=== PATIENT | female | born 1985 | race Caucasian/White ===

== ENCOUNTER 2017-01-23 15:34 | Emergency (ER) | payer SELFPAY ==
[2017-01-23 15:38] VITALS: BP 123/66; BMI 38.4
--- NOTE | 2017-01-23 19:49 | DR.URIAD ---
HPI - PCP Primary Care Physician: JULES - Complaint Chief Complaint:: PT. C/O SORE THROAT, HEADACHE, CHILLS, FEVER, N/V, AND SHORTNESS OF BREATH X 3 DAYS. - Source History Provided: Patient - Mode of Arrival Mode of Arrival: Ambulatory - Timing Onset of Chief Complaint: 01/20/17 PMH - PMH Past Medical History: No Past Medical History: Migraines, Kidney Stones Past Surgical History: Yes Surgical History: Appendectomy, , Cholecystectomy, [employer] Surgery, Other Past Surgical History Comment: TUBAL LIGATION, NOVASURE - Family History History of Family Medical Conditions: Yes Family Medical History: Diabetes Mellitus - Social History Does patient currently use any type of tobacco product: Yes Have you used tobacco products in the last 12 months: Yes Type of Tobacco Use: Cigarettes Does any household member use tobacco: No Alcohol Use: None Do you use any recreational Drugs:: No Lives With: Family Lives Where: Home - infectious screening In the last 2 months have you had wt loss of >10#?: NO Have you had fever, night sweats or hemotysis?: No Have you traveled outside the country in the last 6 months?: No Isolation: Standard PE - Vital Signs Vitals: Temperature 98 F Pulse Rate 90 Respiratory Rate 20 Blood Pressure 123/66 O2 Sat by Pulse Oximetry 98 ROR - Labs Reviewed Laboratory: Specimen Type Clean catch urine 01/23/17 20:06 Urine Color Yellow (YELLOW) 01/23/17 20:06 Urine Appearance Slightly hazy (CLEAR) 01/23/17 20:06 Urine pH 5.0 (5.0 - 8.0) 01/23/17 20:06 Ur Specific [place] 1.025 (1.000-1.030) 01/23/17 20:06 Urine Protein 1+ (NEGATIVE) 01/23/17 20:06 Urine Glucose (UA) Negative (NEGATIVE) 01/23/17 20:06 Urine Ketones Negative (NEGATIVE) 01/23/17 20:06 Urine Occult Blood 1+ (NEGATIVE) 01/23/17 20:06 Urine Nitrite Negative (NEGATIVE) 01/23/17 20:06 Urine Bilirubin Negative (NEGATIVE) 01/23/17 20:06 Urine Urobilinogen Normal (NORMAL) 01/23/17 20:06 Ur Leukocyte Esterase 1+ (NEGATIVE) 01/23/17 20:06 Urine RBC Rare /HPF (NEGATIVE) 01/23/17 20:06 Urine WBC 1 - 3 /HPF (NEGATIVE) 01/23/17 20:06 Ur Squamous Epith Cells Numerous /HPF (NEGATIVE) 01/23/17 20:06 Urine Bacteria Trace /HPF (NEGATIVE) 01/23/17 20:06 Ur Culture Indicated? No/not indicated 01/23/17 20:06 Influenza Type A (PCR) Negative (NEGATIVE) 01/23/17 19:37 Influenza Type B (PCR) Negative (NEGATIVE) 01/23/17 19:37 Streptococcus Screen Negative (NEGATIVE) 01/23/17 19:37 - Discharge Plan Condition: Stable Prescriptions: Azithromycin [ZITHROMAX Tab 250 mg *] 1 dose PO DAILY #6 tab Cetirizine HCl [Zyrtec Tab 10 mg] 10 mg PO DAILY #30 tab Promethazine W/Codeine [PHENERGAN W/CODEINE 6.25mg/10mg (5mL) *] 10 ml PO Q6H PRN #120 ml PRN Reason: Cough - Follow ups/Referrals Follow ups/Referrals: USMAN VICENTE [Primary Care Provider] - 3 days - Instructions Instructions: Acute Bronchitis, [id number], Sinusitis, Adult, [id number] Additional Instructions: RETURN TO ED IF WORSE.
[2017-01-23 20:21] LABS: BILIRUBIN,URINE NEGATIVE (NEGATIVE); BLOOD/HEMOGLOBIN,URINE 1+ (NEGATIVE); GLUCOSE, URINE NEGATIVE (NEGATIVE); KETONES,URINE NEGATIVE (NEGATIVE); LEUKOCYTE ESTERASE ,URINE 1+ (NEGATIVE); NITRITES,URINE NEGATIVE (NEGATIVE); PROTEIN,URINE 1+ (NEGATIVE); UROBILINOGEN,URINE NORMAL (NORMAL)
[2017-01-23 20:29] LABS: APPEARANCE,URINE SLIGHTLY HAZY (CLEAR); COLOR,URINE YELLOW (YELLOW)
[2017-01-23 20:31] LABS: BACTERIA,URINE TRACE /HPF (NEGATIVE); RBC,URINE RARE /HPF (NEGATIVE); SQUAMOUS EPITHELIAL CELL,UR NUMEROUS /HPF (NEGATIVE)
--- NOTE | 2017-01-23 21:09 | RAD ---
HISTORY: Sore throat, headache, chills, fever, nausea and vomiting. Shortness of breath for 3 days. Study: Chest one view Comparison: December 21, 2015. Findings: The trachea is midline. The cardiac silhouette is unremarkable. The lungs are clear without focal i nfiltrate or effusion. The bony thorax is unremarkable. IMPRESSION: 1. No acute cardiopulmonary disease. Reported By:
[2017-01-23] MEDS ORDERED: ZITHROMAX TAB 250 MG PO ONE ×2 (21:21→21:37)
[2017-01-23] MEDS ORDERED: PHENERGAN W/CODEINE 6.25MG/10MG PO ONE (21:21)
[2017-01-23] MEDS ORDERED: ZyrTEC TAB 10 MG PO ONE (21:22)
[2017-01-23] MEDS ORDERED: PHENERGAN W/CODEINE 6.25MG/10MG ONE (21:37)
[2017-01-23] MEDS ORDERED: ZyrTEC TAB 10 MG ONE (21:37)
== END 2017-01-23 21:54 | disposition home or self-care (01) ==
LOC: ER 15:54
DX: J32.9 Chronic sinusitis, unspecified (principal); J20.9 Acute bronchitis, unspecified; J02.9 Acute pharyngitis, unspecified; R51 Headache; R50.9 Fever, unspecified; R11.2 Nausea with vomiting, unspecified; R68.83 Chills (without fever)
CPT/HCPCS: 71010; 81001; 87070; 87502; 87880; 99282; Q0144

== ENCOUNTER 2017-05-04 17:41 | Emergency (ER) | payer SELFPAY ==
[2017-05-04 17:48] VITALS: BMI 38.0
--- NOTE | 2017-05-04 18:11 | DR.GENAD ---
HPI - PCP Primary Care Physician: NFD - Complaint/Symptoms Chief Complaint Doctors Comments: Patient presents with cough, congestion and body aches. She has tried OTC medication with out relief of symptoms. Chief Complaint:: PT STATES, "MY CHEST FEELS LIKE ITS CAVING IN AND I'VE BEEN HAVING SOME SHORTNESS OF BREATH AND SOME THROWING UP." PT ALSO C/O GEN BODY ACHES. Self Treatment fo Chief Complaint: THERAFLU. CLARITIN - Source History Provided: Patient - Mode of Arrival Mode of Arrival: Ambulatory - Timing Onset of Chief Complaint: 05/01/17 PMH - PMH Past Medical History: No Past Medical History: Migraines, Kidney Stones Past Surgical History: Yes Surgical History: Appendectomy, , Cholecystectomy Past Surgical History Comment: TUBAL - Family History History of Family Medical Conditions: Yes Family Medical History: Diabetes Mellitus, Hypertension - Social History Alcohol Use: None Do you use any recreational Drugs:: No Lives With: Family Lives Where: Home - infectious screening In the last 2 months have you had wt loss of >10#?: NO Have you had fever, night sweats or hemotysis?: No Have you traveled outside the country in the last 6 months?: No Isolation: Standard ROS - Review of Systems Constitutional: Weakness Eyes: No Symptoms Reported ENTM: No Symptoms Reported Respiratoy: No Symptoms Reported Cardiovascular: No Symptoms Reported Gastrointestinal/Abdominal: No Symptoms Reported Genitourinary: No Symptoms Reported Neurological: No Symptoms Reported Musculoskeletal: No Symptoms Reported Integumentary: No Symptoms Reported Hematologic/Lymphatic: No Symptoms Reported Endocrine: No Symptoms Reported Psychiatric: No Symptoms Reported All Other Systems: Reviewed and Negative PE - Vital Signs Vitals: Temperature 98.4 F Pulse Rate 88 Respiratory Rate 20 Blood Pressure 106/57 O2 Sat by Pulse Oximetry 98 - General Limitations: No Limitations General Appearance: Alert, In No Apparent Distress - Head Head Exam: Normal Inspection, Atraumatic - Eyes Eye exam: Normal Appearance, PERRL, EOMI - ENT ENT Exam: Normal Exam, Normal Oropharynx External Ear Exam: Normal External Inspection TM/Canal Exam: Bilateral Normal Nose Exam: Normal Nose Exam Mouth Exam: Normal Inspection Throat Exam: Normal Inspection - Neck Neck Exam: Normal Inspection, Full ROM - Chest Chest Inspection: Normal Inspection, Symmetric Chest Wall Rise - Respiratory Respiratory Exam: Normal Lung Sounds Bilat Respiratory Exam: Bilateral Clear to Auscultation - Cardiovascular Cardiovascular Exam: Regular Rate, Normal Rhythm - Abdominal Exam Abdominal Exam: Normal Inspection, Normal Bowel Sounds Abdominal Tenderness: negative: RUQ, RLQ, LUQ, LLQ, Epigastrium, Suprapubic, Diffuse, Mild, Moderate, Severe, Other - Extremities Extremities Exam: Normal Inspection, Full ROM - Back Back Exam: Normal Inspection - Neurologic Neurological Exam: Alert, Oriented X3, CN II-XII Intact - Psychiatric Psychiatric Exam: Normal Affect, Normal Mood - Skin Skin Exam: Warm, Dry Course - Reevaluation 1st: Unchanged ROR - Labs Reviewed Laboratory Results Reviewed?: Yes (Influenze negativer) Laboratory: Influenza Type A (PCR) Negative (NEGATIVE) 05/04/17 18:23 Influenza Type B (PCR) Negative (NEGATIVE) 05/04/17 18:23 - Diagnosis Discharge Problem: Upper respiratory infection Qualifiers: URI type: unspecified viral URI Qualified Code(s): J06.9 - Acute upper respiratory infection, unspecified - Discharge Plan Condition: Stable - Follow ups/Referrals Follow ups/Referrals: NFD,None [Primary Care Provider] - 3 days - Instructions
[2017-05-04 19:37] VITALS: BP 115/58
== END 2017-05-04 19:37 | disposition home or self-care (01) ==
LOC: ER 17:51
DX: J06.9 Acute upper respiratory infection, unspecified (principal)
CPT/HCPCS: 87502; 99282; 99283